=== PATIENT | male | born 1945 | race Two or more races ===

== ENCOUNTER 2020-01-17 09:31 | Outpatient (CLI) | payer OTHER | END 2020-01-17 09:55 | disposition home or self-care (01) | LOC: TOM 09:31 | PROVIDERS: ATTEND Internal Medicine | DX: Q33.8 Other congenital malformations of lung (principal); J18.8 Other pneumonia, unspecified organism; J91.8 Pleural effusion in other conditions classified elsewhere | CPT/HCPCS: 71260; Q9965 ==

== ENCOUNTER → 2020-01-25 | Outpatient (CLI) | payer OTHER | END | disposition home or self-care (01) | LOC: SONOGRAMA 09:43 → MAMO-SONO 10:15 | PROVIDERS: ATTEND Physical Medicine & Rehabilitation | DX: M21.822 Other specified acquired deformities of left upper arm (principal); M25.522 Pain in left elbow ==

== ENCOUNTER 2020-05-01 08:22 | Outpatient (CLI) | payer OTHER | END 2020-05-01 08:41 | disposition home or self-care (01) | LOC: SONOGRAMA 08:22 → MAMO-SONO 09:15 | PROVIDERS: ATTEND Specialist | DX: C61 Malignant neoplasm of prostate (principal); N64.4 Mastodynia ==

== ENCOUNTER 2020-08-09 08:07 | Outpatient (CLI) | payer OTHER | END 2020-08-09 08:20 | disposition home or self-care (01) | LOC: MAMO-SONO 08:07 | PROVIDERS: ATTEND Specialist | DX: N62 Hypertrophy of breast (principal) ==

== ENCOUNTER → 2020-08-21 | Outpatient (CLI) | payer OTHER | END | disposition home or self-care (01) | LOC: RAD 12:48 | PROVIDERS: ATTEND Specialist | DX: J18.0 Bronchopneumonia, unspecified organism (principal) ==

== ENCOUNTER 2020-09-14 08:51 | Outpatient (CLI) | payer OTHER | END 2020-09-14 09:02 | disposition home or self-care (01) | LOC: SONOGRAMA 08:51 → MAMO-SONO 09:15 | PROVIDERS: ATTEND Internal Medicine Endocrinology, Diabetes & Metabolism | DX: C62.11 Malignant neoplasm of descended right testis (principal); C62.12 Malignant neoplasm of descended left testis; N62 Hypertrophy of breast ==

== ENCOUNTER 2024-07-20 11:47 | Inpatient (IN) | payer OTHER ==
[~2024-07-20] VITALS: Ht 185.4 cm; Wt 86.6 kg
[~2024-07-20 11:47] MED LIST changes: -FAMOTIDINE/PF 20 MG/2 ML VIAL IV PUSH STA; -FAMOTIDINE/PF 20 MG/2 ML VIAL ONE; -KETOROLAC TROMETHAMINE 30 MG VIAL IV STA; -KETOROLAC TROMETHAMINE 30 MG VIAL ONE; -ONDANSETRON HCL 2 MG/ML VIAL ONE; -PROMETHAZINE HCL 50 MG/ML AMPUL IM ONE; -PROMETHAZINE HCL 50 MG/ML AMPUL IM STA
--- NOTE | 2024-07-20 12:53 | NUR ---
SE RECIBE PACIENTE ALERTA Y ORIENTADO X3 REFIERE VENIR POR DOLOR ABDOMINAL,NAUSEAS, VOMITOS
[2024-07-20] MEDS ORDERED: 0.9 % SODIUM CHLORIDE 500 ML IV ONE (14:30)
[2024-07-20] MEDS ORDERED: ONDANSETRON HCL 2 MG/ML VIAL IV ONE (14:30)
[2024-07-20] MEDS ORDERED: FAMOTIDINE/PF 20 MG/2 ML VIAL IV ONE (14:30)
--- NOTE | 2024-07-20 14:32 | NUR ---
PTE EVALUADO POR DANAY BILL. MAC ROWLEYA, COLECTA MUESTRA DE LAB Y ADMINISTRA MEDICAMNETO LEV ORDEN MEDICA BAJO MEDIDAS ASEPTICAS. SE NOTIFICAN CT PENDIENTE.
[2024-07-20 14:48] LABS: HEMATOCRIT 36.9 % (39.0-48.0); HEMOGLOBIN 12.6 g/dL (13-16.00); MEAN CELL VOLUME 97.1 fL (80.0-100.00); MEAN CORPUSCULAR HEMOGLOBIN 33.1 pg (27.00-32.0); MEAN CORPUSCULAR HGB CONC 34.1 g/dl (32.0-36.0); PLATELET COUNT 189 K/uL (150-450); RED BLOOD COUNT 3.81 M/uL (4.00-6.00); RED CELL DISTRIBUTION WIDTH 13.2 % (11.5-14.5)
[2024-07-20 15:18] LABS: INR 1.02; PROTHROMBIN TIME 11.1 SECONDS (9.0-11.5)
[2024-07-20 15:26] LABS: PH,URINE 5.5 (5.0-8.0); URINE APPEARANCE Clear; URINE BILIRRUBIN Moderate (NEGATIVE); URINE BLOOD Negative; URINE COLOR Dark Yellow; URINE GLUCOSE Negative (NEGATIVE); URINE KETONE Trace (NEGATIVE); URINE LEUKOCYTE Trace; URINE NITRATE Negative; URINE PROTEIN 30 (NEGATIVE)
[2024-07-20 15:30] LABS: URINE EPITHELIAL CELLS 19.6 uL (0.0-38.8); URINE RBC 40.9 uL (0.0-20.8); URINE WBC 2.5 uL (0.0-23.2)
[2024-07-20 15:52] LABS: ALBUMIN 3.8 gm/dL (3.4-5.0); BILIRUBIN TOTAL 3.87 mg/dL (0.3-1.2); BILIRUBIN,CONJUGATED 3.21 mg/dL (0.0-0.2); BILIRUBIN,UNCONJUGATED 0.66 mg/dL (0.0-0.6); CALCIUM 9.5 mg/dL (8.5-10.1); CREATININE SERUM 1.35 mg/dL (0.70-1.30); GFR 51.25; GLOBULINA 2.9 G/DL (2.4-3.5); POTASSIUM 4.83 mEq/L (3.5-5.1); TOTAL PROTEIN 6.7 gm/dL (6.4-8.2)
[2024-07-20 16:10] LABS: URINE BACTERIA 3.6 uL (0.0-1933); URINE CAST 0.73 uL (0.0-1.40); URINE MUCUS MODERATE
[2024-07-20] MEDS ORDERED: PIPERACILLIN/TAZOBACTAM SODIUM 3.375 GM VIAL IV ONE ×3 (17:59→23:19)
[2024-07-20] MEDS ORDERED: 0.9 % SODIUM CHLORIDE 1,000 ML IV SCH (18:45)
[2024-07-20] MEDS ORDERED: MORPHINE SULFATE 4 MG/ML CARTRIDGE IV PRN (19:00)
[2024-07-20] MEDS ORDERED: ONDANSETRON HCL 4 MG in 0.9 % SODIUM CHLORIDE 50 ML IV PRN (19:00)
[2024-07-20] MEDS ORDERED: ACETAMINOPHEN 500 MG GEL..CAP PO PRN (19:00)
[2024-07-20 21:26] VITALS: BP 132/69; O2SAT 95
[2024-07-20 22:12] VITALS: BP 132/69
[2024-07-21] MEDS ORDERED: PIPERACILLIN/TAZOBACTAM SODIUM 3.375 GM in DEXTROSE 5 % IN WATER 100 ML IV SCH
[2024-07-21] MEDS ORDERED: PIPERACILLIN/TAZOBACTAM SODIUM 3.375 GM VIAL IV ONE (06:13)
[2024-07-21 07:07] VITALS: BP 106/83; O2SAT 96
[2024-07-21 07:22] LABS: ALBUMIN 3.1 gm/dL (3.4-5.0); BILIRUBIN TOTAL 5.42 mg/dL (0.3-1.2); BILIRUBIN,CONJUGATED 4.79 mg/dL (0.0-0.2); BILIRUBIN,UNCONJUGATED 0.63 mg/dL (0.0-0.6); CHOL HDL RATIO 1.7 (0-5.0); TOTAL PROTEIN 6.1 gm/dL (6.4-8.2)
[2024-07-21] MEDS ORDERED: FAMOTIDINE/PF 20 MG/2 ML VIAL ONE (08:55)
[2024-07-21] MEDS ORDERED: FAMOTIDINE/PF 20 MG in 0.9 % SODIUM CHLORIDE 8 ML IV PUSH SCH (09:00)
[2024-07-21 11:23] VITALS: BP 161/82; O2SAT 99
[2024-07-21 16:00] VITALS: BP 132/75; O2SAT 96
[2024-07-21] MEDS ORDERED: ENOXAPARIN SODIUM 40 MG/0.4 ML SYRINGE SUBCUTANEO SCH (17:00)
[2024-07-22] VITALS: BP 135/76; O2SAT 95
[2024-07-22 07:10] LABS: ALBUMIN 3.1 gm/dL (3.4-5.0); BILIRUBIN TOTAL 2.67 mg/dL (0.3-1.2); BILIRUBIN,CONJUGATED 2.13 mg/dL (0.0-0.2); BILIRUBIN,UNCONJUGATED 0.54 mg/dL (0.0-0.6); CALCIUM 8.8 mg/dL (8.5-10.1); CREATININE SERUM 1.09 mg/dL (0.70-1.30); GFR 65.6; GLOBULINA 2.4 G/DL (2.4-3.5); POTASSIUM 3.94 mEq/L (3.5-5.1); TOTAL PROTEIN 5.5 gm/dL (6.4-8.2)
[2024-07-22 08:00] VITALS: BP 159/82; O2SAT 95
[2024-07-22 11:10] LABS: hav igm Negative (Negative); hcv Non Reactive (Non Reactive); hep b c Negative (Negative); hep b s ag Negative (Negative)
[2024-07-22 17:20] VITALS: BP 158/85; O2SAT 96
== END 2024-07-22 18:05 | disposition left against medical advice (07) | DRG 442 ==
LOC: ER 11:48 → SEC-K 19:12 → SURG 07-21 10:45
PROVIDERS: General Practice; ADMIT Student in an Organized Health Care Education/Training Program; ATTEND Student in an Organized Health Care Education/Training Program
PROC: BF37ZZZ Magnetic Resonance Imaging (MRI) of Pancreas (ICD-10-PCS; principal; 2024-07-20)
PROC: B020ZZZ Computerized Tomography (CT Scan) of Brain (ICD-10-PCS; 2024-07-20)
PROC: BW21YZZ Computerized Tomography (CT Scan) of Abdomen and Pelvis using Other Contrast (ICD-10-PCS; 2024-07-20)
DX: E80.6 Other disorders of bilirubin metabolism (principal); R17 Unspecified jaundice; R74.01 Elevation of levels of liver transaminase levels; E03.9 Hypothyroidism, unspecified; E78.5 Hyperlipidemia, unspecified; Z90.49 Acquired absence of other specified parts of digestive tract

== ENCOUNTER → 2024-07-20 | Emergency (ER) | payer OTHER ==
[~2024-07-20] VITALS: Ht 160 cm; Wt 86.6 kg
[~2024-07-20] MED LIST: ERLEADA60 MG PO; EZALLOR SPRINKLE5 MG PO; FAMOTIDINE/PF 20 MG/2 ML VIAL IV PUSH STA; FAMOTIDINE/PF 20 MG/2 ML VIAL ONE; KETOROLAC TROMETHAMINE 30 MG VIAL IV STA; KETOROLAC TROMETHAMINE 30 MG VIAL ONE; LEVOXYL112 MCG PO; ONDANSETRON HCL 2 MG/ML VIAL ONE; PROMETHAZINE HCL 50 MG/ML AMPUL IM ONE; PROMETHAZINE HCL 50 MG/ML AMPUL IM STA
[2024-07-20 05:06] LABS: HEMATOCRIT 38.8 % (39.0-48.0); HEMOGLOBIN 13.4 g/dL (13-16.00); MEAN CELL VOLUME 97.1 fL (80.0-100.00); MEAN CORPUSCULAR HEMOGLOBIN 33.5 pg (27.00-32.0); MEAN CORPUSCULAR HGB CONC 34.5 g/dl (32.0-36.0); PLATELET COUNT 234 K/uL (150-450); RED CELL DISTRIBUTION WIDTH 13.3 % (11.5-14.5)
[2024-07-20 05:32] LABS: ALBUMIN 4.4 gm/dL (3.4-5.0); BILIRUBIN TOTAL 1.95 mg/dL (0.3-1.2); BILIRUBIN,CONJUGATED 1.55 mg/dL (0.0-0.2); BILIRUBIN,UNCONJUGATED 0.4 mg/dL (0.0-0.6); CALCIUM 9.9 mg/dL (8.5-10.1); CREATININE SERUM 1.24 mg/dL (0.70-1.30); GFR 56.53; GLOBULINA 3.2 G/DL (2.4-3.5); POTASSIUM 4.65 mEq/L (3.5-5.1); TOTAL PROTEIN 7.6 gm/dL (6.4-8.2)
[2024-07-20 07:03] LABS: URINE APPEARANCE Clear; URINE BILIRRUBIN Small (NEGATIVE); URINE BLOOD Negative; URINE COLOR Dark Yellow; URINE GLUCOSE Negative (NEGATIVE); URINE KETONE Trace (NEGATIVE); URINE LEUKOCYTE Negative; URINE NITRATE Negative; URINE PROTEIN 30 (NEGATIVE)
[2024-07-20 07:06] LABS: URINE EPITHELIAL CELLS 2.5 uL (0.0-38.8); URINE RBC 18.4 uL (0.0-20.8)
[2024-07-20 07:41] LABS: URINE BACTERIA 3.6 uL (0.0-1933); URINE CAST 0.14 uL (0.0-1.40)
[2024-07-20 07:42] LABS: URINE CRYSTALS MODERATE /HPF
== END | disposition left against medical advice (07) ==
LOC: ER 03:33
PROVIDERS: General Practice
DX: R10.13 Epigastric pain (principal); E03.8 Other specified hypothyroidism; Z85.89 Personal history of malignant neoplasm of other organs and systems; R11.10 Vomiting, unspecified; R74.8 Abnormal levels of other serum enzymes; N20.2 Calculus of kidney with calculus of ureter
CPT/HCPCS: 36415; 76700; 96365; 96372; 99284; J1885; J2250; J3490

== ENCOUNTER 2025-02-23 09:00 | Emergency (ER) | payer OTHER ==
[~2025-02-23] VITALS: Ht 185.4 cm; Wt 83.9 kg
[2025-02-23] MEDS ORDERED: KETOROLAC TROMETHAMINE 30 MG VIAL ONE (09:26)
[2025-02-23] MEDS ORDERED: FAMOTIDINE/PF 20 MG/2 ML VIAL ONE (09:27)
[2025-02-23] MEDS ORDERED: CEFTRIAXONE SODIUM 1,000 MG VIAL ONE (09:27)
[2025-02-23] MEDS ORDERED: CEFTRIAXONE SODIUM 1,000 MG VIAL IV ONE (09:30)
[2025-02-23] MEDS ORDERED: KETOROLAC TROMETHAMINE 30 MG VIAL IV ONE (09:30)
[2025-02-23] MEDS ORDERED: 0.9 % SODIUM CHLORIDE 1,000 ML IV ONE (09:30)
[2025-02-23] MEDS ORDERED: FAMOtidine 10 MG/ML (4ML VIAL) IV PUSH ONE (09:30)
[2025-02-23 09:55] LABS: BASO % 0.2 % (0.1-1.2); EOS # 0.02 (0.04-0.54); EOS % 0.1 % (0.7-7.0); LYMPH # 0.99 (1.18-3.74); LYMPH % 6.6 % (19.3-53.1); MEAN PLATELET VOLUME 10.20 fl (9.4-12.4); MONO # 1.80 (0.24-0.82); MONO % 12.0 % (4.7-12.5); NEUT # 12.14 (1.56-6.13); NEUT % 80.6 % (34.0-71.1); RED CELL DISTRIBUTION WIDTH 12.4 % (11.6-14.4)
[2025-02-23 10:56] LABS: COVID-19 AG NEGATIVE (NEGATIVE)
[2025-02-23] MEDS ORDERED: BENZONATATE200 M1 PO (12:42)
[2025-02-23] MEDS ORDERED: ZITHROMAX500 MG PO (12:42)
[2025-02-23] MEDS ORDERED: PEPCID AC20 MG PO (12:42)
== END 2025-02-23 13:29 | disposition home or self-care (01) ==
LOC: ER 09:01
PROVIDERS: General Practice
DX: J02.9 Acute pharyngitis, unspecified (principal); R53.1 Weakness; E86.0 Dehydration; Z20.822 Contact with and (suspected) exposure to COVID-19
CPT/HCPCS: 36415; 71046; 96365; 99283; J1885; J3490; J7030